=== PATIENT | female | born 1980 | race Caucasian/White ===

== ENCOUNTER → 2018-05-25 16:15 | Outpatient (CLI) | payer OTHER, MEDICAID, SELFPAY ==
--- NOTE | 2018-05-25 16:24 | BI_ITS ---
MAMMOGRAPHY - BILATERAL SCREENING 3-D ЕКАТЕРИНА SYNTHESIS REASON FOR EXAM: Female, 37 years old. Bilateral Screening 3-D tomosynthesis PERTINENT HISTORY: Asymptomatic. Family breast carcinoma with 2 sisters age 32 and 45. Also maternal aunt age 50. Gained 15 pounds. TECHNIQUE: 2-D mammograms and 3-D Екатерина synthesis of the breast (s) were performed. CAD was performed. Right mole marked per Supervisor Engraving. COMPARISON: 02/26/2017, 12/24/2015 and 09/26/2014. FINDINGS: The breast composition is extremely dense which limits sensitivity of mammography for neoplasm detection. Scattered benign appearing calcifications are seen. No dense spiculated dominant masses or suspicious microcalcification cluster are identified. No new architectural distortion, asymmetric density, adenopathy, skin thickening or nipple retraction identified. BI/SCREENING MAMM (CAD), BILAT IMPRESSION: No mammographic sign of malignancy. Routine yearly mammograms recommended. If clinically indicated, MRI breasts is more sensitive for pathology with extremely dense breasts. Clinical correlation recommended. ASSESSMENT CATEGORY: BIRADS Category 2: Benign. A letter regarding these results will be sent to the patient by the facility within 30 days. FOLLOW UP RECOMMENDATION: Yearly follow up mammogram recommended. (A) Negative mammographic results should not deter biopsy as any palpable lesion if present should be followed based on clinical grounds and biopsy performed if clinically persistent for 3 months or increasing size. Approximately 10% of breast cancers are not detected by mammography. A normal mammogram should not delay biopsy of a clinically suspicious abnormality. Dense breast tissue may obscure neoplasm. Electronically Signed: Bola Thomson, at 18:11 EDT Tel , Service support ,
== END ==
DX: Z12.31 Encounter for screening mammogram for malignant neoplasm of breast (principal)
CPT/HCPCS: 77063; 77067

== ENCOUNTER → 2019-05-26 07:27 | Outpatient (CLI) | payer OTHER, SELFPAY ==
--- NOTE | 2019-05-26 07:29 | BI_ITS ---
BILATERAL DIGITAL MAMMOGRAM WITH TOMOSYNTHESIS: Mediolateraloblique and craniocaudal views demonstrate no evidence of dominant parenchymal masses. No cluster of microcalcifications or architectural distortion is seen. No evidence of skin thickening is identified. There has been no significant change since 05/24/2018. Breast Density: The breast tissue is extremely dense which may lower the sensitivity of mammography. CAD was used to assist in final assessment. BI/SCREEN MAMM (CAD) W/ЕКАТЕРИНА BILAT IMPRESSION: NORMAL MAMMOGRAM BILATERALLY. ASSESSMENT CATEGORY: BIRADS Category 1: Negative. A letter regarding these results will be sent to the patient by the facility within 30 days. Yearly follow-up mammograms are recommended. Approximately 10% of breast cancers are not detected by mammography. A normal mammogram should not delay biopsy of a clinically suspicious abnormality. [id number] Electronically Signed: Devin Valenzuela, at 16:57 EDT Tel , Service support ,
== END ==
DX: Z12.31 Encounter for screening mammogram for malignant neoplasm of breast (principal)
CPT/HCPCS: 77063; 77067